=== PATIENT | male | born 1995 | race African-American/Black ===

== ENCOUNTER 2020-05-08 18:02 | Emergency (ER) | payer MEDICAID ==
[~2020-05-08] VITALS: Ht 177.8 cm; Wt 75.0 kg
[2020-05-08] MEDS: IBUPROFEN 800MG TABLET PO ONE (19:13)
[2020-05-08 19:55] VITALS: BP 120/79
== END 2020-05-08 19:56 | disposition home or self-care (01) ==
LOC: ER 18:02
DX: M25.511 Pain in right shoulder (principal); M79.644 Pain in right finger(s)
CPT/HCPCS: 71045; 73030; 73130; 99284

== ENCOUNTER 2021-01-11 23:58 | Emergency (ER) | payer MEDICAID | END 2021-01-12 03:06 | disposition left against medical advice (07) | LOC: ER 23:58 | DX: Z53.21 Procedure and treatment not carried out due to patient leaving prior to being seen by health care provider (principal) ==